=== PATIENT | female | born 1965 | race Caucasian/White ===

== ENCOUNTER 2016-12-20 12:34 | Emergency (ER) | payer OTHER ==
--- NOTE | 2016-12-20 14:12 | DIAGNOSTIC IMAGING REPORT ---
PROCEDURE: XR CHEST 2 VIEW INDICATION: COUGH TECHNIQUE: Two views. COMPARISON: None. FINDINGS: Low lung volumes. Normal heart size. There is crowded central vasculature, accentuated due to low lung volumes. Mild thickening of the interstitium diffusely. Mild hazy alveolar opacity in the right lower lung, right mid lung. The left lung appears fairly clear. Questionable trace right effusion. No pneumothorax. Intact osseous structures. IMPRESSION: 1. Low lung volumes. There is accentuation of the central bronchovascular markings. 2. Right mid and lower lung opacities may be atelectasis, infectious process, less likely edema. Correlate clinically.
--- NOTE | 2016-12-20 14:33 | ED ORDER SUMMARY ---
..... Patient: DWAINE MORAN OrderSheet [facility] VisitID: [id number] [address] [place] [address] 51y, F Registration Date/Time: 12/20/2016 ORDER SHEET Weight: 109.7 kg (stated) Allergies: Codeine GENERAL ORDERS: Chest 2V Urgent (13:18 12/20/2016 HBivens A.R.N.P.) (Ack 13:25 RKaruga) (14:07 RMarsden R.N.) CBC w Diff Urgent (13:18 12/20/2016 HBivens A.R.N.P.) (Ack 13:25 RKaruga) (13:38 RMarsden R.N.) CMP Urgent (13:18 12/20/2016 HBivens A.R.N.P.) (Ack 13:25 RKaruga) (13:38 RMarsden R.N.) BNP Urgent (13:18 12/20/2016 HBivens A.R.N.P.) (Ack 13:25 RKaruga) (13:38 RMarsden R.N.) EKG - ER Stat (13:18 12/20/2016 HBivens A.R.N.P.) (Ack 13:25 RKaruga) (13:45 RKaruga) MEDICATION ORDERS: Albuterol Neb w Atrovent 1 unit dose (NOW) (13:18 12/20/2016 HBivens A.R.N.P.) (13:42 Jamil) IV FLUIDS: IV Saline Lock (13:03 12/20/2016 RMarsden R.N. per protocol) (Cancelled: Duplicate Order14:00 RMarsden R.N.) Solu-MEDROL IV 125 mg (NOW) (13:17 12/20/2016 HBivens A.R.N.P.) (13:59 RMarsden R.N.) IV Saline Lock (13:18 12/20/2016 HBivens A.R.N.P.) (13:28 LSullivan R.N.) Ceftriaxone IV 1 gm/50mL (NOW) (14:24 12/20/2016 HBivens A.R.N.PAida) (Ack 14:27 RMarsden R.N.) (14:35 RMarskassie R.N.) ORDER SHEET NOTES: [Electronically signed by Dilcia Hayes R.N. (15:14 12/20/2016)] [Electronically signed by Gwen PeñaNAidaPAida (18:17 12/20/2016)] [Electronically locked/signed by Dilcia Hayes R.N. (15:14 12/20/2016)]
--- NOTE | 2016-12-20 14:33 | ED NURSING NOTES ---
Clinical Report - Nurses [facility] [address] [place] [address] 12/20/2016 12:36 Patient: DWAINE MORAN TRIAGE Triage time 12:50. Acuity: LEVEL 3. 13:01 12/20/16. Alert. No acute distress. SEPSIS SCREEN: Sepsis Screen. Negative (no infection suspected/documented). SALLY COMA SCORE: [place] Coma Scale: 15- eyes open spontaneously (4); best verbal response- oriented x 4 (5); best motor response- obeys commands (6). --13:01 Melissa Will R.N. 12:51 12/20/16. BP: 163/85. HR: 99. RR: 19. O2 saturation: 100%. Temp: 97.6 F. Pain level now: 02/23. --13:01 Melissa Will R.N. Chief Complaint: COUGH and (shortness of breath). --15:14 Dilcia Hayes R.N. Weight: 109.7 kg stated. Height/Length: 63 inches Per Patient. BMI: 42.9. --13:00 Melissa Will R.N. Medications Atorvastatin Calcium Oral 40 mg, daily. BuPROPion HCl Oral 150 mg, 2x a day. Clotrimazole-Betamethasone External, twice daily. Flexeril Oral 10 mg, 2x a day. FLUoxetine HCl Oral (Tablet 60 mg), daily. Imitrex Oral (Tablet 50 mg) 2 tablets, PRN. Lantus SoloStar Subcutaneous (Solution 100 unit/mL) 60units, twice daily (pt states she hasn't taken for about one month because she wants to loose weight.). LORazepam Oral 1 mg, 3x a day as needed. PriLOSEC Oral 20 mg, 3x a day. Qvar Inhalation (Aerosol Solution 80 mcg/act) 2 puffs, twice daily. Triamcinolone Acetonide External Small amount, daily. Vicodin Oral 10 mg, 4x a day. Vit D-Vit E-Safflower Oil External 1000 units, daily. Zetia Oral (Tablet 10 mg) 1 tablet, daily. --12:55 Melissa Will R.N. NovoLOG Subcutaneous. --12:56 Melissa Will R.N. Lyrica Oral. --12:56 Melissa Will R.N. Allergies Codeine. --12:52 Melissa Will R.N. History Arrived by private vehicle. Historian: patient and family. This started last night. She has had a nasal discharge, chest congestion, chills and difficulty breathing. ( upper back pain from coughing). Treatment DESTINATION COORDINATOR: (mucinex). PAST MEDICAL HX: Immunizations: up-to-date. Denies current . SOCIAL HX: Former smoker, end date 1993. No alcohol use or drug use. FALL RISK ASSESSMENT: Fall risk assessment completed. No fall risk identified. NUTRITIONAL RISK ASSESSMENT: The nutritional risk assessment revealed no deficiencies. FUNCTIONAL ASSESSMENT: Functional assessment: no impairments noted. LEARNING NEEDS ASSESSMENT: The learning needs assessment revealed no barriers. SKIN INTEGRITY ASSESSMENT: Skin integrity risk assessment completed. No skin integrity risk identified. --13:01 Melissa Will R.N. PROBLEMS: Myofascial Strain. Tetanus Status. Immunizations. Nephrolithiasis. Dyspnea. Anxiety Reaction. Depression. Fibromyalgia. Asthma. Diabetes Mellitus. Hypertension. LNMP - Last Normal Menstrual Period. --12:55 Melissa Will R.N. ADDITIONAL SURGERIES: Appendectomy. Cholecystectomy. Hysterectomy. Kidney stents. --12:55 Melissa Will R.N. Interventions ID band on patient. To treatment room. --13:01 Melissa Will R.N. PHYSICAL ASSESSMENT 13:02 12/20/16. GENERAL / NEURO / PSYCH: Alert. Oriented X 4. Appears in no acute distress. HEENT: Mucous membranes are pink. RESPIRATORY: Mild respiratory distress. The patient can speak in full sentences. CVS: Capillary refill less than 2 seconds. SKIN: Skin is warm and dry. Normal skin turgor. --13:02 Melissa Will R.N. NURSING PROGRESS NOTES 13:02 12/20/16. Patient gowned. Two patient identifiers checked. Call light placed in reach. Bed placed in lowest position. Brakes of bed on. Patient ready for evaluation- chart flagged and notification provided. --13:02 Melissa Will R.N. 13:28 12/20/2016 Site #1 started via IV in the left hand with an 20g angiocath, with aseptic technique and good blood return; one attempt. Blood drawn: rainbow set. Labeled in the presence of the patient and sent to the lab. Saline lock flushed with 10 mL saline. --13:28 Dilcia Hayes R.N. 13:42 12/20/2016 ALBUTEROL NEB W ATROVENT Neb TX 1 unit dose given. Given by the respiratory therapist. --13:42 Rico Price EKG time: (13:40). EKG was performed by a tech and shown to the LINER HELPER. --13:45 Claudia Krishnamurthy 13:49 12/20/2016 SOLU-MEDROL (MethylPREDNISolone Sodium Succ) IVP 125 mg given over 3 minute(s) via site #1. Allergies verified and confirmed 5 rights. IV patency established. IV site checked: no pain, redness, or swelling. IV flushed thoroughly pre- and post-medication administration. IVP given by RN. --13:59 Melissa Will R.N. 14:35 12/20/2016 Started 1 gm of Ceftriaxone IVPB in bag #1 50 mL; at 150 mL/hr over 20 minute(s) via site #1 via IV pump. Allergies verified and confirmed 5 rights. IV patency established. IV site checked: no pain, redness, or swelling. IV flushed thoroughly pre- and post-medication administration. --14:35 Melissa Will R.N. 15:00 12/20/2016 Ceftriaxone IVPB Discontinued: infused. Total amount infused: 50 mL. IV patency established. IV site checked: no pain, redness, or swelling. IV flushed thoroughly. --15:00 Dilcia Hayes R.N. DISPOSITION / DISCHARGE 15:04 12/20/2016 Site #1 removed upon discharge. Catheter intact. Bandage applied. --15:14 Dilcia Hayes R.N. Departure time: 1507. Condition at departure: improved. No learning barriers present. Discharge instructions provided and reviewed with the patient and family. Reviewed medication(s) information. Prescription(s) given to the patient. Reviewed referral to family practice for followup. Patient verbalized understanding. Written instructions provided. The patient was discharged home and accompanied by bowling alley mechanic. She left the Emergency Department ambulatory and via private vehicle. --15:14 Dilcia Hayes R.N. 15:07 12/20/16. BP: 140/71. HR: 98. RR: 19. O2 saturation: 96%. Temp: 98.3 F. Pain level now: 10/26. --15:14 Dilcia Hayes R.N. Locked/Released at 12/20/2016 15:14 by Dilcia Hayes R.N.
--- NOTE | 2016-12-20 14:33 | ED ORDER SUMMARY ---
..... Patient: DWAINE MORAN OrderSheet [facility] VisitID: [id number] [address] [place] [address] 51y, F Registration Date/Time: 12/20/2016 ORDER SHEET Weight: 109.7 kg (stated) Allergies: Codeine GENERAL ORDERS: Chest 2V Urgent (13:18 12/20/2016 HBivens A.R.N.P.) (Ack 13:25 RKaruga) (14:07 RMarsden R.N.) CBC w Diff Urgent (13:18 12/20/2016 HBivens A.R.N.P.) (Ack 13:25 RKaruga) (13:38 RMarsden R.N.) CMP Urgent (13:18 12/20/2016 HBivens A.R.N.P.) (Ack 13:25 RKaruga) (13:38 RMarsden R.N.) BNP Urgent (13:18 12/20/2016 HBivens A.R.N.P.) (Ack 13:25 RKaruga) (13:38 RMarsden R.N.) EKG - ER Stat (13:18 12/20/2016 HBivens A.R.N.P.) (Ack 13:25 RKaruga) (13:45 RKaruga) MEDICATION ORDERS: Albuterol Neb w Atrovent 1 unit dose (NOW) (13:18 12/20/2016 HBivens A.R.N.P.) (13:42 Jamil) IV FLUIDS: IV Saline Lock (13:03 12/20/2016 RMarsden R.N. per protocol) (Cancelled: Duplicate Order14:00 RMarsden R.N.) Solu-MEDROL IV 125 mg (NOW) (13:17 12/20/2016 HBivens A.R.N.P.) (13:59 RMarsden R.N.) IV Saline Lock (13:18 12/20/2016 HBivens A.R.N.P.) (13:28 LSullivan R.N.) Ceftriaxone IV 1 gm/50mL (NOW) (14:24 12/20/2016 HBivens A.R.N.PAida) (Ack 14:27 RMarsden R.N.) (14:35 RMarskassie R.N.) ORDER SHEET NOTES: [Electronically signed by Dilcia Hayes R.N. (15:14 12/20/2016)] [Electronically signed by Gwen PeñaNAidaPAida (18:17 12/20/2016)] [Electronically locked/signed by Dilcia Hayes R.N. (15:14 12/20/2016)]
--- NOTE | 2016-12-20 14:33 | ED CLINICAL REPORT ---
Clinical Report - Physicians/Mid Levels [facility] [address] [place] [address] 12/20/2016 12:36 Patient: DWAINE MORAN Time Seen: 1310; initial patient contact, initial documentation, patient care assumed. Arrived- By private vehicle. Historian- patient and family. HISTORY OF PRESENT ILLNESS Chief Complaint: DYSPNEA, WHEEZING and HISTORY OF ASTHMA. This started last night and is still present. The dyspnea is described as moderate. The patient has had a cough and orthopnea. No sputum production or chest pain or discomfort. See nurses notes for current asthma threapy. Asthma triggers: air pollution, allergies and weather. Takes asthma medications (inhaled albuterol) Similar symptoms previously: Chronically, worse. Recent medical care: Not recently seen/assessed. REVIEW OF SYSTEMS No sore throat, sinus drainage or fever. She has had a nasal discharge. Denies current . All systems otherwise negative, except as recorded above. PAST HISTORY See nurses notes. PROBLEMS: Myofascial Strain. Tetanus Status. Immunizations. Nephrolithiasis. Dyspnea. Anxiety Reaction. Depression. Fibromyalgia. Asthma. Diabetes Mellitus. Hypertension. LNMP - Last Normal Menstrual Period. --12:55 Melissa Will R.N. ADDITIONAL SURGERIES: Appendectomy. Cholecystectomy. Hysterectomy. Kidney stents. --12:55 Melissa Will R.N. Anemia. SOCIAL HISTORY Former smoker. No alcohol use or drug use. No recent travel. Is a local resident. FAMILY HISTORY Negative. ADDITIONAL NOTES The nursing notes have been reviewed with agreement regarding the chief complaint, HPI, ROS, PMH and patient medications and allergies. PHYSICAL EXAM Vital Signs: 12/20/2016 12:51 BP: 163/85. HR: 99. RR: 19. O2 saturation: 100%. Temp: 97.6 F. Pain level now: 6/10. Have been reviewed as normal and appear to be correct. Appearance: Alert. No acute distress. Eyes: Pupils equal, round and reactive to light. Eyes normal inspection. ENT: Ears normal. Nose normal. Pharynx normal. Uvula midline. (pt sounds somewhat hoarse). Neck: Normal inspection. Neck supple. CVS: Normal heart rate and rhythm. Heart sounds normal. Pulses normal. Respiratory: No respiratory distress. Breath sounds abnormal. Mildly decreased air movement in the bases bilaterally. Abdomen: Mildly obese. Back: Normal inspection. Skin: Skin warm and dry. Normal skin color. No rash. Normal skin turgor. Extremities: Extremities exhibit normal ROM. No lower extremity edema. Neuro: Oriented X 3. No motor deficit. No sensory deficit. LABS, X-RAYS, AND EKG EKG: EKG time: (1340). No acute process. No acute ischemia. Normal EKG. Rate: 91. Normal EKG. The study has been interpreted contemporaneously by me (and dr maciel). The EKG appears to be a good tracing. Interpretation time: 1342. Chest X-ray: Normal Chest X-Ray. (IMPRESSION: 1. Low lung volumes. There is accentuation of the central bronchovascular markings. 2. Right mid and lower lung opacities may be atelectasis, infectious process, less likely edema. Correlate clinically. Electronically Final signed by:Vero Hancock MD 12/20/2016 2:12:40 PM). The X-rays were interpreted by the radiologist and contemporaneously by me. Laboratory Tests: CBC w Diff: (SULEMAN: 12/20/2016 13:22) ( MsgRcvd 12/20/2016 13:47) Final results Test Result Flag Units (Reference) WHITE BLOOD COUNT 6.4 K/uL (4.5-11.5) RED BLOOD COUNT 3.27 L M/uL (4.00-5.20) HEMOGLOBIN 9.8 L gm/dL (12.0-16.0) HEMATOCRIT 30.0 L % (36.0-46.0) MEAN CELL VOLUME 92 fL (80-100) MEAN CORPUSCULAR HGB 30 pg (26-34) MEAN CORPUSCULAR HGB CONC 33 g/dL (31-37) RED CELL DISTRIBUTION WIDTH 13.3 % (11.6-14.8) PLATELET COUNT 279 K/uL (150-400) NEUTROPHIL % 63.0 % (50-75) LYMPH % 22.9 L % (25-40) MONO % 9.9 % (3-14) EOSINOPHIL % 2.6 % (0-4) BASOPHIL % 1.6 % (0-2) BNP: (SULEMAN: 12/20/2016 13:22) ( MsgRcvd 12/20/2016 13:51) Final results Test Result Flag Units (Reference) B-TYPE NATRIURETIC PEPTIDE 77.3 pg/ml (5-100) CMP: (SULEMAN: 12/20/2016 13:22) ( MsgRcvd 12/20/2016 13:51) Final results Test Result Flag Units (Reference) GLUCOSE 278 H mg/dL (70-110) BUN 35 H mg/dL (7-18) CREATININE 1.1 mg/dL (0.6-1.3) Estimated GFR 55.22 mL/min Estimated GFR- >60 mL/min Note: Persistent reduction over 3 months in eGFR<60 mL/min/1.73 m2 defines CKD. Patients with eGFR values>=60 mL/min/1.73 m2 may also have CKD if evidence ofpersistent proteinuria. Additional information may be foundat www.[email or web address].org. SODIUM 140 mmol/L (136-145) POTASSIUM 4.4 mmol/L (3.5-5.1) CHLORIDE 106 mmol/L (98-107) CARBON DIOXIDE 27 mmol/L (21-32) CALCIUM 9.1 mg/dL (8.5-10.1) TOTAL PROTEIN 6.1 L g/dL (6.4-8.2) ALBUMIN 2.1 L g/dL (3.3-5.0) BILIRUBIN, TOTAL 0.2 mg/dL (0.0-1.0) ALKALINE PHOSPHATASE 73 U/L (46-116) AST (SGOT) 33 U/L (15-37) ALT (SGPT) 60 U/L (12-78) . PROGRESS AND PROCEDURES Course of Care: 13:51 12/20/16. pt has ligia for narcs, getting lyrica and #120 hydrocodone 10mg every month, see report for full details. 18:17. 14:20. Symptoms better. She is having difficulty breathing (began in ED - improving). Alert. Oriented X3. No acute distress. Breath sounds normal. No respiratory distress. Normal heart rate and rhythm. Heart sounds normal. Skin warm and dry. Oriented X 3. Patient and family counseled in person regarding the patient's stable condition, test results and diagnosis. 14:20. Differential Diagnosis: Other possible considerations: asthma, copd, emphysema, bronchitis, pneumonia, sinusitis, allergies, chf. Above considerations are based on history, physical exam, reassessment, laboratory data, X-Ray data, EKG and other information. Differential diagnosis was discussed with patient and patient's family. Disposition: Discharged home in good and improved condition (14:33). Condition: good and stable. CLINICAL IMPRESSION Bronchopneumonia. Vital signs recorded and reviewed; empiric antibiotics given in the ED and prescribed. No hypoxemia, respiratory failure or sepsis. INSTRUCTIONS Alternate Tylenol (Acetaminophen) and Motrin (Ibuprofen) for fever, temperature greater than 101 degrees orally. Take according to label instructions. Avoid tobacco smoke. Warnings: GENERAL WARNINGS: Return or contact your physician immediately if your condition worsens or changes unexpectedly, if not improving as expected, or if other problems arise. Specifically return if problem worsens. Prescription Medications: Albuterol HFA oral inhaler: inhale 1 to 2 puffs every four to six hours as needed for difficulty breathing. Dispense one (1) unit. No refills. Prednisone 20 mg: take 3 orally every day for 5 days. Dispense fifteen (15). No refills. Zithromax 250 mg tablets: take 2 orally today, followed by 1 daily for the next 4 days. No refills. Substitution is permissible. Follow-up: Follow up with your doctor in about two days even if well. Call for an appointment. Summary of care provided to patient. Understanding of the discharge instructions verbalized by patient. (Electronically signed by Gwen Peña A.R.N.P. 12/20/2016 18:17)
--- NOTE | 2016-12-20 14:33 | ED NURSING NOTES ---
Clinical Report - Nurses [facility] [address] [place] [address] 12/20/2016 12:36 Patient: DWAINE MORAN TRIAGE Triage time 12:50. Acuity: LEVEL 3. 13:01 12/20/16. Alert. No acute distress. SEPSIS SCREEN: Sepsis Screen. Negative (no infection suspected/documented). SALLY COMA SCORE: [place] Coma Scale: 15- eyes open spontaneously (4); best verbal response- oriented x 4 (5); best motor response- obeys commands (6). --13:01 Melissa Will R.N. 12:51 12/20/16. BP: 163/85. HR: 99. RR: 19. O2 saturation: 100%. Temp: 97.6 F. Pain level now: 02/23. --13:01 Melissa Will R.N. Chief Complaint: COUGH and (shortness of breath). --15:14 Dilcia Hayes R.N. Weight: 109.7 kg stated. Height/Length: 63 inches Per Patient. BMI: 42.9. --13:00 Melissa Will R.N. Medications Atorvastatin Calcium Oral 40 mg, daily. BuPROPion HCl Oral 150 mg, 2x a day. Clotrimazole-Betamethasone External, twice daily. Flexeril Oral 10 mg, 2x a day. FLUoxetine HCl Oral (Tablet 60 mg), daily. Imitrex Oral (Tablet 50 mg) 2 tablets, PRN. Lantus SoloStar Subcutaneous (Solution 100 unit/mL) 60units, twice daily (pt states she hasn't taken for about one month because she wants to loose weight.). LORazepam Oral 1 mg, 3x a day as needed. PriLOSEC Oral 20 mg, 3x a day. Qvar Inhalation (Aerosol Solution 80 mcg/act) 2 puffs, twice daily. Triamcinolone Acetonide External Small amount, daily. Vicodin Oral 10 mg, 4x a day. Vit D-Vit E-Safflower Oil External 1000 units, daily. Zetia Oral (Tablet 10 mg) 1 tablet, daily. --12:55 Melissa Will R.N. NovoLOG Subcutaneous. --12:56 Melissa Will R.N. Lyrica Oral. --12:56 Melissa Will R.N. Allergies Codeine. --12:52 Melissa Will R.N. History Arrived by private vehicle. Historian: patient and family. This started last night. She has had a nasal discharge, chest congestion, chills and difficulty breathing. ( upper back pain from coughing). Treatment OPERATIONS ARCHITECT: (mucinex). PAST MEDICAL HX: Immunizations: up-to-date. Denies current . SOCIAL HX: Former smoker, end date 1993. No alcohol use or drug use. FALL RISK ASSESSMENT: Fall risk assessment completed. No fall risk identified. NUTRITIONAL RISK ASSESSMENT: The nutritional risk assessment revealed no deficiencies. FUNCTIONAL ASSESSMENT: Functional assessment: no impairments noted. LEARNING NEEDS ASSESSMENT: The learning needs assessment revealed no barriers. SKIN INTEGRITY ASSESSMENT: Skin integrity risk assessment completed. No skin integrity risk identified. --13:01 Melissa Will R.N. PROBLEMS: Myofascial Strain. Tetanus Status. Immunizations. Nephrolithiasis. Dyspnea. Anxiety Reaction. Depression. Fibromyalgia. Asthma. Diabetes Mellitus. Hypertension. LNMP - Last Normal Menstrual Period. --12:55 Melissa Will R.N. ADDITIONAL SURGERIES: Appendectomy. Cholecystectomy. Hysterectomy. Kidney stents. --12:55 Melissa Will R.N. Interventions ID band on patient. To treatment room. --13:01 Melissa Will R.N. PHYSICAL ASSESSMENT 13:02 12/20/16. GENERAL / NEURO / PSYCH: Alert. Oriented X 4. Appears in no acute distress. HEENT: Mucous membranes are pink. RESPIRATORY: Mild respiratory distress. The patient can speak in full sentences. CVS: Capillary refill less than 2 seconds. SKIN: Skin is warm and dry. Normal skin turgor. --13:02 Melissa Will R.N. NURSING PROGRESS NOTES 13:02 12/20/16. Patient gowned. Two patient identifiers checked. Call light placed in reach. Bed placed in lowest position. Brakes of bed on. Patient ready for evaluation- chart flagged and notification provided. --13:02 Melissa Will R.N. 13:28 12/20/2016 Site #1 started via IV in the left hand with an 20g angiocath, with aseptic technique and good blood return; one attempt. Blood drawn: rainbow set. Labeled in the presence of the patient and sent to the lab. Saline lock flushed with 10 mL saline. --13:28 Dilcia Hayes R.N. 13:42 12/20/2016 ALBUTEROL NEB W ATROVENT Neb TX 1 unit dose given. Given by the respiratory therapist. --13:42 Rico Price EKG time: (13:40). EKG was performed by a tech and shown to the METAL TEMPERER. --13:45 Claudia Krishnamurthy 13:49 12/20/2016 SOLU-MEDROL (MethylPREDNISolone Sodium Succ) IVP 125 mg given over 3 minute(s) via site #1. Allergies verified and confirmed 5 rights. IV patency established. IV site checked: no pain, redness, or swelling. IV flushed thoroughly pre- and post-medication administration. IVP given by RN. --13:59 Melissa Will R.N. 14:35 12/20/2016 Started 1 gm of Ceftriaxone IVPB in bag #1 50 mL; at 150 mL/hr over 20 minute(s) via site #1 via IV pump. Allergies verified and confirmed 5 rights. IV patency established. IV site checked: no pain, redness, or swelling. IV flushed thoroughly pre- and post-medication administration. --14:35 Melissa Will R.N. 15:00 12/20/2016 Ceftriaxone IVPB Discontinued: infused. Total amount infused: 50 mL. IV patency established. IV site checked: no pain, redness, or swelling. IV flushed thoroughly. --15:00 Dilcia Hayes R.N. DISPOSITION / DISCHARGE 15:04 12/20/2016 Site #1 removed upon discharge. Catheter intact. Bandage applied. --15:14 Dilcia Hayes R.N. Departure time: 1507. Condition at departure: improved. No learning barriers present. Discharge instructions provided and reviewed with the patient and family. Reviewed medication(s) information. Prescription(s) given to the patient. Reviewed referral to family practice for followup. Patient verbalized understanding. Written instructions provided. The patient was discharged home and accompanied by system consultant. She left the Emergency Department ambulatory and via private vehicle. --15:14 Dilcia Hayes R.N. 15:07 12/20/16. BP: 140/71. HR: 98. RR: 19. O2 saturation: 96%. Temp: 98.3 F. Pain level now: 10/26. --15:14 Dilcia Hayes R.N. Locked/Released at 12/20/2016 15:14 by Dilcia Hayes R.N.
--- NOTE | 2016-12-20 18:17 | ED MAR SUMMARY ---
..... Medication Administration Record [facility] [address] [place] [address] Patient: DWAINE MORAN Visit ID: [id number] 51y, F Weight: 109.7 kg Height/Length: 63 in BMI: 42.9 ALLERGIES: Codeine Given 13:42 12/20/2016 Rico Price, Medication Administered: ALBUTEROL NEB W ATROVENT, Dose: 1 unit dose Neb TX. Medication Ordered: Albuterol Neb w Atrovent 1 unit dose (NOW). Given 13:49 12/20/2016 Melissa Will RAidaN. Medication Administered: SOLU-MEDROL [IVP] (METHYLPREDNISOLONE SODIUM SUCC), Dose: 125 mg IVP over 3 minute(s), Site: #1 left hand. Medication Ordered: Solu-MEDROL IV 125 mg (NOW). Start 14:35 12/20/2016 Melissa Will, RAidaN., Stop 15:00 12/20/2016 Dilcia Hayes RAidaN. Medication Administered: CEFTRIAXONE [IVPB], Dose: 1 gm IVPB over 20 minute(s), Rate: 150 mL/hr, Dispensed: 50 mL bag, Site: #1 left hand. Medication Ordered: Ceftriaxone IV 1 gm/50mL (NOW).
--- NOTE | 2016-12-20 18:17 | ED DISCHARGE INSTRUCTIONS ---
Patient: DWAINE MORAN General Instructions [facility] VisitID: [id number] [place] [address] [id number], F Registration Date/Time: 12/20/2016 Bronchopneumonia. Vital signs recorded and reviewed; empiric antibiotics given in the ED and prescribed. No hypoxemia, respiratory failure or sepsis. INSTRUCTIONS Alternate Tylenol (Acetaminophen) and Motrin (Ibuprofen) for fever, temperature greater than 101 degrees orally. Take according to label instructions. Avoid tobacco smoke. Warnings: GENERAL WARNINGS: Return or contact your physician immediately if your condition worsens or changes unexpectedly, if not improving as expected, or if other problems arise. Specifically return if problem worsens. Prescription Medications: Albuterol HFA oral inhaler: inhale 1 to 2 puffs every four to six hours as needed for difficulty breathing. Dispense one (1) unit. No refills. Prednisone 20 mg: take 3 orally every day for 5 days. Dispense fifteen (15). No refills. Zithromax 250 mg tablets: take 2 orally today, followed by 1 daily for the next 4 days. No refills. Substitution is permissible. Follow-up: Follow up with your doctor in about two days even if well. Call for an appointment. Summary of care provided to patient. Understanding of the discharge instructions verbalized by patient. ADDITIONAL INFORMATION Pneumonia (Adult) Pneumonia is an infection deep within the lung, in the small air sacs (alveoli). It may be due to a virus or bacteria and is usually treated with an antibiotic. Severe cases require treatment in the hospital. Milder cases can be treated at home. Symptoms usually start to improve during the first2 days of treatment. Home Care: Rest at home for the first 23 days or until you feel stronger. When resuming activity, dont let yourself become overly tired. Avoid exposure to cigarette smoke (yours or others). You may use acetaminophen (Tylenol) or ibuprofen (Motrin, Advil) to control fever or pain, unless another medicine was prescribed. [NOTE: If you have chronic liver or kidney disease or ever had a stomach ulcer or GI bleeding, talk with your doctor before using these medicines.] (Aspirin should never be used in anyone under 18 years of age who is ill with a fever. It may cause severe liver damage.) Your appetite may be poor so a light diet is fine. Keep well hydrated by drinking 68 glasses of fluids per day (water, sport drinks such as Gatorade, sodas without caffeine, juices, tea, soup, etc.). This will help loosen secretions in the lung, making it easier for you to cough up the phlegm (sputum). If you also have heart or kidney disease, check with your doctor before you drink extra amounts of fluids. Finish all antibiotic medicine prescribed, even if you are feeling better after a few days. Follow Up with your doctor in the next 23 days (or as advised) to be sure you are responding properly to the medicine. [NOTE: If you are age 65 or older, or if you have chronic lung disease (asthma, emphysema or COPD), we recommendthe pneumococcal vaccination and a yearlyinfluenzavaccination(flu-shot) every . Ask your doctor about this.] Get Prompt Medical Attention if any of the following occur: Not getting better within the first 48 hours of treatment Increasing shortness of breath or rapid breathing (over 25 breaths/minute) Coughing up blood or increasing chest pain with breathing Fever of 100.4F (38C) oral or higher, not better with fever medication Increasing weakness, dizziness or fainting Increasing thirst or dry mouth Sinus pain, headache or a stiff neck Chest pain not caused by coughing Fever Control (Adult) A fever is a natural reaction of the body to an illness. In most cases, the temperature itself is not harmful. It actually helps the body fight infections. A fever does not need to be treated unless you feel very uncomfortable. Home Care If you feel warm, check your temperature. If you feel very uncomfortable and your temperature is at or higher than 100.4F (38C) oral, you may take acetaminophen (Tylenol) every 4 to 6 hours. If you cant take or keep down oral medicine, ask your pharmacist for Tylenol suppositories, which you can get without a prescription. If the fever does not respond to acetaminophen within 1 hour, take ibuprofen (Advil or Motrin). If this works, keep taking the ibuprofen every 6 to 8 hours. Note: If you have chronic liver or kidney disease or ever had a stomach ulcer or GI bleeding, talk with your doctor before using these medications. If either medication alone does not keep the fever down, you may alternate the two medicines every 3 to 4 hours, only if your healthcare provider has instructed you to do so. For example, take Motrin then wait 3 hours, take Tylenol then wait 3 hours, take Motrin, and so on. Follow your healthcare providers instructions exactly. Clothing: Keep clothing light because excess body heat is lost through the skin. The fever will go up if you wear extra layers or wrap in blankets. Fluids: Fever causes the body to lose water through evaporation. Drink plenty of fluids such as water, juice, clear sodas, giulia mason, or lemonade. Do not use aspirin in anyone under 18 years of age who is ill with a fever. It can cause severe liver damage. Follow Up with your doctor or as advised by our staff if you do not get better after 48 hours. Get Prompt Medical Attention if any of the following occur: Fever does not get better after taking fever medication Fast or difficult breathing Earache, sinus pain, stiff or painful neck, headache, repeated diarrhea or vomiting You feel unusually irritable, drowsy, or confused A rash appears You feel weak or dizzy, or that you might faint Albuterol Sulfate Pressurized inhalation, suspension What is this medicine? ALBUTEROL (al BYOO ter ole) is a bronchodilator. It helps open up the airways in your lungs to make it easier to breathe. This medicine is used to treat and to prevent bronchospasm. How should I use this medicine? This medicine is for inhalation through the mouth. Follow the directions on your prescription label. Take your medicine at regular intervals. Do not use more often than directed. Make sure that you are using your inhaler correctly. Ask you doctor or health care provider if you have any questions. Talk to your hadoop engineer regarding the use of this medicine in children. Special care may be needed. What side effects may I notice from receiving this medicine? Side effects that you should report to your doctor or health clinical manager home care as soon as possible: allergic reactions like skin rash, itching or hives, swelling of the face, lips, or tongue breathing problems chest pain feeling faint or lightheaded, falls high blood pressure irregular heartbeat fever muscle cramps or weakness pain, tingling, numbness in the hands or feet vomiting Side effects that usually do not require medical attention (report to your doctor or health clinical manager home care if they continue or are bothersome): cough difficulty sleeping headache nervousness or trembling stomach upset stuffy or runny nose throat irritation unusual taste What may interact with this medicine? anti-infectives like chloroquine and pentamidine caffeine cisapride diuretics medicines for colds medicines for depression or for emotional or psychotic conditions medicines for weight loss including some herbal products methadone some antibiotics like clarithromycin, erythromycin, levofloxacin, and linezolid some heart medicines steroid hormones like dexamethasone, cortisone, hydrocortisone theophylline thyroid hormones What if I miss a dose? If you miss a dose, use it as soon as you can. If it is almost time for your next dose, use only that dose. Do not use double or extra doses. Where should I keep my medicine? Keep out of the reach of children. Store at room temperature between 15 and 30 degrees C (59 and 86 degrees F). The contents are under pressure and may burst when exposed to heat or flame. Do not freeze. This medicine does not work as well if it is too cold. Throw away any unused medicine after the expiration date. Inhalers need to be thrown away after the labeled number of puffs have been used or by the expiration date; whichever comes first. Ventolin HFA should be thrown away 12 months after removing from foil pouch. Check the instructions that come with your medicine. What should I tell my health care provider before I take this medicine? They need to know if you have any of the following conditions: diabetes heart disease or irregular heartbeat high blood pressure pheochromocytoma seizures thyroid disease an unusual or allergic reaction to albuterol, levalbuterol, sulfites, other medicines, foods, dyes, or preservatives or trying to get breast-feeding What should I watch for while using this medicine? Tell your doctor or health clinical manager home care if your symptoms do not improve. Do not use extra albuterol. If your asthma or bronchitis gets worse while you are using this medicine, call your doctor right away. If your mouth gets dry try chewing sugarless gum or sucking hard candy. Drink water as directed. Prednisone Oral tablet What is this medicine? PREDNISONE (PRED ni sone) is a corticosteroid. It is commonly used to treat inflammation of the skin, joints, lungs, and other organs. Common conditions treated include asthma, allergies, and arthritis. It is also used for other conditions, such as blood disorders and diseases of the adrenal glands. How should I use this medicine? Take this medicine by mouth with a glass of water. Follow the directions on the prescription label. Take this medicine with food. If you are taking this medicine once a day, take it in the morning. Do not take more medicine than you are told to take. Do not suddenly stop taking your medicine because you may develop a severe reaction. Your doctor will tell you how much medicine to take. If your doctor wants you to stop the medicine, the dose may be slowly lowered over time to avoid any side effects. Talk to your hadoop engineer regarding the use of this medicine in children. Special care may be needed. What side effects may I notice from receiving this medicine? Side effects that you should report to your doctor or health clinical manager home care as soon as possible: allergic reactions like skin rash, itching or hives, swelling of the face, lips, or tongue changes in emotions or moods changes in vision depressed mood eye pain fever or chills, cough, sore throat, pain or difficulty passing urine increased thirst swelling of ankles, feet Side effects that usually do not require medical attention (report to your doctor or health clinical manager home care if they continue or are bothersome): confusion, excitement, restlessness headache nausea, vomiting skin problems, acne, thin and shiny skin trouble sleeping weight gain What may interact with this medicine? Do not take this medicine with any of the following medications: metyrapone mifepristone This medicine may also interact with the following medications: aminoglutethimide amphotericin B aspirin and aspirin-like medicines barbiturates certain medicines for diabetes, like glipizide or glyburide cholestyramine cholinesterase inhibitors cyclosporine digoxin diuretics ephedrine female hormones, like estrogens and control pills isoniazid ketoconazole NSAIDS, medicines for pain and inflammation, like ibuprofen or naproxen phenytoin rifampin toxoids vaccines warfarin What if I miss a dose? If you miss a dose, take it as soon as you can. If it is almost time for your next dose, talk to your doctor or health clinical manager home care. You may need to miss a dose or take an extra dose. Do not take double or extra doses without advice. Where should I keep my medicine? Keep out of the reach of children. Store at room temperature between 15 and 30 degrees C (59 and 86 degrees F). Protect from light. Keep container tightly closed. Throw away any unused medicine after the expiration date. What should I tell my health care provider before I take this medicine? They need to know if you have any of these conditions: Queenie's syndrome diabetes glaucoma heart disease high blood pressure infection (especially a virus infection such as chickenpox, cold sores, or herpes) kidney disease liver disease mental illness myasthenia gravis osteoporosis seizures stomach or intestine problems thyroid disease an unusual or allergic reaction to lactose, prednisone, other medicines, foods, dyes, or preservatives or trying to get breast-feeding What should I watch for while using this medicine? Visit your doctor or health clinical manager home care for regular checks on your progress. If you are taking this medicine over a prolonged period, carry an identification card with your name and address, the type and dose of your medicine, and your doctor's name and address. This medicine may increase your risk of getting an infection. Tell your doctor or health clinical manager home care if you are around anyone with measles or chickenpox, or if you develop sores or blisters that do not heal properly. If you are going to have surgery, tell your doctor or health clinical manager home care that you have taken this medicine within the last twelve months. Ask your doctor or health clinical manager home care about your diet. You may need to lower the amount of salt you eat. This medicine may affect blood sugar levels. If you have diabetes, check with your doctor or health clinical manager home care before you change your diet or the dose of your diabetic medicine. Azithromycin Oral tablet What is this medicine? AZITHROMYCIN (az ith nilton MYE sin) is a macrolide antibiotic. It is used to treat or prevent certain kinds of bacterial infections. It will not work for colds, flu, or other viral infections. How should I use this medicine? Take this medicine by mouth with a full glass of water. Follow the directions on the prescription label. The tablets can be taken with food or on an empty stomach. If the medicine upsets your stomach, take it with food. Take your medicine at regular intervals. Do not take your medicine more often than directed. Take all of your medicine as directed even if you think your are better. Do not skip doses or stop your medicine early. Talk to your hadoop engineer regarding the use of this medicine in children. Special care may be needed. What side effects may I notice from receiving this medicine? Side effects that you should report to your doctor or health clinical manager home care as soon as possible: allergic reactions like skin rash, itching or hives, swelling of the face, lips, or tongue confusion, nightmares or hallucinations dark urine difficulty breathing hearing loss irregular heartbeat or chest pain pain or difficulty passing urine redness, blistering, peeling or loosening of the skin, including inside the mouth white patches or sores in the mouth yellowing of the eyes or skin Side effects that usually do not require medical attention (report to your doctor or health clinical manager home care if they continue or are bothersome): diarrhea dizziness, drowsiness headache stomach upset or vomiting tooth discoloration vaginal irritation What may interact with this medicine? Do not take this medicine with any of the following medications: lincomycin This medicine may also interact with the following medications: amiodarone antacids cyclosporine digoxin magnesium nelfinavir phenytoin warfarin What if I miss a dose? If you miss a dose, take it as soon as you can. If it is almost time for your next dose, take only that dose. Do not take double or extra doses. Where should I keep my medicine? Keep out of the reach of children. Store at room temperature between 15 and 30 degrees C (59 and 86 degrees F). Throw away any unused medicine after the expiration date. What should I tell my health care provider before I take this medicine? They need to know if you have any of these conditions: kidney disease liver disease irregular heartbeat or heart disease an unusual or allergic reaction to azithromycin, erythromycin, other macrolide antibiotics, foods, dyes, or preservatives or trying to get breast-feeding What should I watch for while using this medicine? Tell your doctor or health clinical manager home care if your symptoms do not improve. Do not treat diarrhea with over the counter products. Contact your doctor if you have diarrhea that lasts more than 2 days or if it is severe and watery. This medicine can make you more sensitive to the sun. Keep out of the sun. If you cannot avoid being in the sun, wear protective clothing and use sunscreen. Do not use sun lamps or tanning beds/booths. You have been given the following additional information: Pneumonia (Adult) Fever Control (Adult) Albuterol Sulfate Pressurized inhalation, suspension Prednisone Oral tablet Azithromycin Oral tablet (Electronically signed by Gwen Peña, A.R.N.P. 12/20/2016 18:17)
--- NOTE | 2016-12-20 18:17 | ED DISCHARGE INSTRUCTIONS ---
Patient: DWAINE MORAN General Instructions [facility] VisitID: [id number] [place] [address] 51y, F Registration Date/Time: 12/20/2016 Bronchopneumonia. Vital signs recorded and reviewed; empiric antibiotics given in the ED and prescribed. No hypoxemia, respiratory failure or sepsis. INSTRUCTIONS Alternate Tylenol (Acetaminophen) and Motrin (Ibuprofen) for fever, temperature greater than 101 degrees orally. Take according to label instructions. Avoid tobacco smoke. Warnings: GENERAL WARNINGS: Return or contact your physician immediately if your condition worsens or changes unexpectedly, if not improving as expected, or if other problems arise. Specifically return if problem worsens. Prescription Medications: Albuterol HFA oral inhaler: inhale 1 to 2 puffs every four to six hours as needed for difficulty breathing. Dispense one (1) unit. No refills. Prednisone 20 mg: take 3 orally every day for 5 days. Dispense fifteen (15). No refills. Zithromax 250 mg tablets: take 2 orally today, followed by 1 daily for the next 4 days. No refills. Substitution is permissible. Follow-up: Follow up with your doctor in about two days even if well. Call for an appointment. Summary of care provided to patient. Understanding of the discharge instructions verbalized by patient. ADDITIONAL INFORMATION Pneumonia (Adult) Pneumonia is an infection deep within the lung, in the small air sacs (alveoli). It may be due to a virus or bacteria and is usually treated with an antibiotic. Severe cases require treatment in the hospital. Milder cases can be treated at home. Symptoms usually start to improve during the first2 days of treatment. Home Care: Rest at home for the first 23 days or until you feel stronger. When resuming activity, dont let yourself become overly tired. Avoid exposure to cigarette smoke (yours or others). You may use acetaminophen (Tylenol) or ibuprofen (Motrin, Advil) to control fever or pain, unless another medicine was prescribed. [NOTE: If you have chronic liver or kidney disease or ever had a stomach ulcer or GI bleeding, talk with your doctor before using these medicines.] (Aspirin should never be used in anyone under 18 years of age who is ill with a fever. It may cause severe liver damage.) Your appetite may be poor so a light diet is fine. Keep well hydrated by drinking 68 glasses of fluids per day (water, sport drinks such as Gatorade, sodas without caffeine, juices, tea, soup, etc.). This will help loosen secretions in the lung, making it easier for you to cough up the phlegm (sputum). If you also have heart or kidney disease, check with your doctor before you drink extra amounts of fluids. Finish all antibiotic medicine prescribed, even if you are feeling better after a few days. Follow Up with your doctor in the next 23 days (or as advised) to be sure you are responding properly to the medicine. [NOTE: If you are age 65 or older, or if you have chronic lung disease (asthma, emphysema or COPD), we recommendthe pneumococcal vaccination and a yearlyinfluenzavaccination(flu-shot) every . Ask your doctor about this.] Get Prompt Medical Attention if any of the following occur: Not getting better within the first 48 hours of treatment Increasing shortness of breath or rapid breathing (over 25 breaths/minute) Coughing up blood or increasing chest pain with breathing Fever of 100.4F (38C) oral or higher, not better with fever medication Increasing weakness, dizziness or fainting Increasing thirst or dry mouth Sinus pain, headache or a stiff neck Chest pain not caused by coughing Fever Control (Adult) A fever is a natural reaction of the body to an illness. In most cases, the temperature itself is not harmful. It actually helps the body fight infections. A fever does not need to be treated unless you feel very uncomfortable. Home Care If you feel warm, check your temperature. If you feel very uncomfortable and your temperature is at or higher than 100.4F (38C) oral, you may take acetaminophen (Tylenol) every 4 to 6 hours. If you cant take or keep down oral medicine, ask your pharmacist for Tylenol suppositories, which you can get without a prescription. If the fever does not respond to acetaminophen within 1 hour, take ibuprofen (Advil or Motrin). If this works, keep taking the ibuprofen every 6 to 8 hours. Note: If you have chronic liver or kidney disease or ever had a stomach ulcer or GI bleeding, talk with your doctor before using these medications. If either medication alone does not keep the fever down, you may alternate the two medicines every 3 to 4 hours, only if your healthcare provider has instructed you to do so. For example, take Motrin then wait 3 hours, take Tylenol then wait 3 hours, take Motrin, and so on. Follow your healthcare providers instructions exactly. Clothing: Keep clothing light because excess body heat is lost through the skin. The fever will go up if you wear extra layers or wrap in blankets. Fluids: Fever causes the body to lose water through evaporation. Drink plenty of fluids such as water, juice, clear sodas, giulia mason, or lemonade. Do not use aspirin in anyone under 18 years of age who is ill with a fever. It can cause severe liver damage. Follow Up with your doctor or as advised by our staff if you do not get better after 48 hours. Get Prompt Medical Attention if any of the following occur: Fever does not get better after taking fever medication Fast or difficult breathing Earache, sinus pain, stiff or painful neck, headache, repeated diarrhea or vomiting You feel unusually irritable, drowsy, or confused A rash appears You feel weak or dizzy, or that you might faint Albuterol Sulfate Pressurized inhalation, suspension What is this medicine? ALBUTEROL (al BYOO ter ole) is a bronchodilator. It helps open up the airways in your lungs to make it easier to breathe. This medicine is used to treat and to prevent bronchospasm. How should I use this medicine? This medicine is for inhalation through the mouth. Follow the directions on your prescription label. Take your medicine at regular intervals. Do not use more often than directed. Make sure that you are using your inhaler correctly. Ask you doctor or health care provider if you have any questions. Talk to your [employer] at [employer] regarding the use of this medicine in children. Special care may be needed. What side effects may I notice from receiving this medicine? Side effects that you should report to your doctor or health lawn care technician as soon as possible: allergic reactions like skin rash, itching or hives, swelling of the face, lips, or tongue breathing problems chest pain feeling faint or lightheaded, falls high blood pressure irregular heartbeat fever muscle cramps or weakness pain, tingling, numbness in the hands or feet vomiting Side effects that usually do not require medical attention (report to your doctor or health lawn care technician if they continue or are bothersome): cough difficulty sleeping headache nervousness or trembling stomach upset stuffy or runny nose throat irritation unusual taste What may interact with this medicine? anti-infectives like chloroquine and pentamidine caffeine cisapride diuretics medicines for colds medicines for depression or for emotional or psychotic conditions medicines for weight loss including some herbal products methadone some antibiotics like clarithromycin, erythromycin, levofloxacin, and linezolid some heart medicines steroid hormones like dexamethasone, cortisone, hydrocortisone theophylline thyroid hormones What if I miss a dose? If you miss a dose, use it as soon as you can. If it is almost time for your next dose, use only that dose. Do not use double or extra doses. Where should I keep my medicine? Keep out of the reach of children. Store at room temperature between 15 and 30 degrees C (59 and 86 degrees F). The contents are under pressure and may burst when exposed to heat or flame. Do not freeze. This medicine does not work as well if it is too cold. Throw away any unused medicine after the expiration date. Inhalers need to be thrown away after the labeled number of puffs have been used or by the expiration date; whichever comes first. Ventolin HFA should be thrown away 12 months after removing from foil pouch. Check the instructions that come with your medicine. What should I tell my health care provider before I take this medicine? They need to know if you have any of the following conditions: diabetes heart disease or irregular heartbeat high blood pressure pheochromocytoma seizures thyroid disease an unusual or allergic reaction to albuterol, levalbuterol, sulfites, other medicines, foods, dyes, or preservatives or trying to get breast-feeding What should I watch for while using this medicine? Tell your doctor or health lawn care technician if your symptoms do not improve. Do not use extra albuterol. If your asthma or bronchitis gets worse while you are using this medicine, call your doctor right away. If your mouth gets dry try chewing sugarless gum or sucking hard candy. Drink water as directed. Prednisone Oral tablet What is this medicine? PREDNISONE (PRED ni sone) is a corticosteroid. It is commonly used to treat inflammation of the skin, joints, lungs, and other organs. Common conditions treated include asthma, allergies, and arthritis. It is also used for other conditions, such as blood disorders and diseases of the adrenal glands. How should I use this medicine? Take this medicine by mouth with a glass of water. Follow the directions on the prescription label. Take this medicine with food. If you are taking this medicine once a day, take it in the morning. Do not take more medicine than you are told to take. Do not suddenly stop taking your medicine because you may develop a severe reaction. Your doctor will tell you how much medicine to take. If your doctor wants you to stop the medicine, the dose may be slowly lowered over time to avoid any side effects. Talk to your [employer] at [employer] regarding the use of this medicine in children. Special care may be needed. What side effects may I notice from receiving this medicine? Side effects that you should report to your doctor or health lawn care technician as soon as possible: allergic reactions like skin rash, itching or hives, swelling of the face, lips, or tongue changes in emotions or moods changes in vision depressed mood eye pain fever or chills, cough, sore throat, pain or difficulty passing urine increased thirst swelling of ankles, feet Side effects that usually do not require medical attention (report to your doctor or health lawn care technician if they continue or are bothersome): confusion, excitement, restlessness headache nausea, vomiting skin problems, acne, thin and shiny skin trouble sleeping weight gain What may interact with this medicine? Do not take this medicine with any of the following medications: metyrapone mifepristone This medicine may also interact with the following medications: aminoglutethimide amphotericin B aspirin and aspirin-like medicines barbiturates certain medicines for diabetes, like glipizide or glyburide cholestyramine cholinesterase inhibitors cyclosporine digoxin diuretics ephedrine female hormones, like estrogens and control pills isoniazid ketoconazole NSAIDS, medicines for pain and inflammation, like ibuprofen or naproxen phenytoin rifampin toxoids vaccines warfarin What if I miss a dose? If you miss a dose, take it as soon as you can. If it is almost time for your next dose, talk to your doctor or health lawn care technician. You may need to miss a dose or take an extra dose. Do not take double or extra doses without advice. Where should I keep my medicine? Keep out of the reach of children. Store at room temperature between 15 and 30 degrees C (59 and 86 degrees F). Protect from light. Keep container tightly closed. Throw away any unused medicine after the expiration date. What should I tell my health care provider before I take this medicine? They need to know if you have any of these conditions: Queenie's syndrome diabetes glaucoma heart disease high blood pressure infection (especially a virus infection such as chickenpox, cold sores, or herpes) kidney disease liver disease mental illness myasthenia gravis osteoporosis seizures stomach or intestine problems thyroid disease an unusual or allergic reaction to lactose, prednisone, other medicines, foods, dyes, or preservatives or trying to get breast-feeding What should I watch for while using this medicine? Visit your doctor or health lawn care technician for regular checks on your progress. If you are taking this medicine over a prolonged period, carry an identification card with your name and address, the type and dose of your medicine, and your doctor's name and address. This medicine may increase your risk of getting an infection. Tell your doctor or health lawn care technician if you are around anyone with measles or chickenpox, or if you develop sores or blisters that do not heal properly. If you are going to have surgery, tell your doctor or health lawn care technician that you have taken this medicine within the last twelve months. Ask your doctor or health lawn care technician about your diet. You may need to lower the amount of salt you eat. This medicine may affect blood sugar levels. If you have diabetes, check with your doctor or health lawn care technician before you change your diet or the dose of your diabetic medicine. Azithromycin Oral tablet What is this medicine? AZITHROMYCIN (az ith nilton MYE sin) is a macrolide antibiotic. It is used to treat or prevent certain kinds of bacterial infections. It will not work for colds, flu, or other viral infections. How should I use this medicine? Take this medicine by mouth with a full glass of water. Follow the directions on the prescription label. The tablets can be taken with food or on an empty stomach. If the medicine upsets your stomach, take it with food. Take your medicine at regular intervals. Do not take your medicine more often than directed. Take all of your medicine as directed even if you think your are better. Do not skip doses or stop your medicine early. Talk to your [employer] at [employer] regarding the use of this medicine in children. Special care may be needed. What side effects may I notice from receiving this medicine? Side effects that you should report to your doctor or health lawn care technician as soon as possible: allergic reactions like skin rash, itching or hives, swelling of the face, lips, or tongue confusion, nightmares or hallucinations dark urine difficulty breathing hearing loss irregular heartbeat or chest pain pain or difficulty passing urine redness, blistering, peeling or loosening of the skin, including inside the mouth white patches or sores in the mouth yellowing of the eyes or skin Side effects that usually do not require medical attention (report to your doctor or health lawn care technician if they continue or are bothersome): diarrhea dizziness, drowsiness headache stomach upset or vomiting tooth discoloration vaginal irritation What may interact with this medicine? Do not take this medicine with any of the following medications: lincomycin This medicine may also interact with the following medications: amiodarone antacids cyclosporine digoxin magnesium nelfinavir phenytoin warfarin What if I miss a dose? If you miss a dose, take it as soon as you can. If it is almost time for your next dose, take only that dose. Do not take double or extra doses. Where should I keep my medicine? Keep out of the reach of children. Store at room temperature between 15 and 30 degrees C (59 and 86 degrees F). Throw away any unused medicine after the expiration date. What should I tell my health care provider before I take this medicine? They need to know if you have any of these conditions: kidney disease liver disease irregular heartbeat or heart disease an unusual or allergic reaction to azithromycin, erythromycin, other macrolide antibiotics, foods, dyes, or preservatives or trying to get breast-feeding What should I watch for while using this medicine? Tell your doctor or health lawn care technician if your symptoms do not improve. Do not treat diarrhea with over the counter products. Contact your doctor if you have diarrhea that lasts more than 2 days or if it is severe and watery. This medicine can make you more sensitive to the sun. Keep out of the sun. If you cannot avoid being in the sun, wear protective clothing and use sunscreen. Do not use sun lamps or tanning beds/booths. You have been given the following additional information: Pneumonia (Adult) Fever Control (Adult) Albuterol Sulfate Pressurized inhalation, suspension Prednisone Oral tablet Azithromycin Oral tablet (Electronically signed by Gwen Peña, A.R.N.P. 12/20/2016 18:17)
--- NOTE | 2016-12-20 18:17 | ED MAR SUMMARY ---
..... Medication Administration Record [facility] [address] [place] [address] Patient: DWAINE MORAN Visit ID: [id number] 51y, F Weight: 109.7 kg Height/Length: 63 in BMI: 42.9 ALLERGIES: Codeine Given 13:42 12/20/2016 Rico Price, Medication Administered: ALBUTEROL NEB W ATROVENT, Dose: 1 unit dose Neb TX. Medication Ordered: Albuterol Neb w Atrovent 1 unit dose (NOW). Given 13:49 12/20/2016 Melissa Will RAidaN. Medication Administered: SOLU-MEDROL [IVP] (METHYLPREDNISOLONE SODIUM SUCC), Dose: 125 mg IVP over 3 minute(s), Site: #1 left hand. Medication Ordered: Solu-MEDROL IV 125 mg (NOW). Start 14:35 12/20/2016 Melissa Will, RAidaN., Stop 15:00 12/20/2016 Dilcia Hayes RAidaN. Medication Administered: CEFTRIAXONE [IVPB], Dose: 1 gm IVPB over 20 minute(s), Rate: 150 mL/hr, Dispensed: 50 mL bag, Site: #1 left hand. Medication Ordered: Ceftriaxone IV 1 gm/50mL (NOW).
--- NOTE | 2016-12-20 18:17 | ED MED RECONCILIATION SUMMARY ---
Patient: DWAINE MORAN Medication Reconciliation Report [facility] VisitID: [id number] [address] [place] [address] 51y, F Registration Date/Time: 12/20/2016 Weight: 109.7 kg Height/Length: 63 in. BMI: 42.9 ALLERGIES: Codeine The patient's Home Medications are listed below: THE FOLLOWING MEDICATIONS NEED TO BE RECONCILED: Atorvastatin Calcium Oral 40 mg, daily BuPROPion HCl Oral 150 mg, 2x a day Clotrimazole-Betamethasone External, twice daily Flexeril Oral 10 mg, 2x a day FLUoxetine HCl Oral (60 mg), daily Imitrex Oral (50 mg) 2 tablets, PRN Lantus SoloStar Subcutaneous (100 unit/mL) 60units, twice daily, pt states she hasn't taken for about one month because she wants to loose weight. LORazepam Oral 1 mg, 3x a day Lyrica Oral NovoLOG Subcutaneous PriLOSEC Oral 20 mg, 3x a day Qvar Inhalation (80 mcg/act) 2 puffs, twice daily Triamcinolone Acetonide External Small amount, daily Vicodin Oral 10 mg, 4x a day Vit D-Vit E-Safflower Oil External 1000 units, daily Zetia Oral (10 mg) 1 tablet, daily The source(s) of the original Home Medication information: Not obtained. The following Medications were given to the patient in the Emergency Department: ALBUTEROL NEB W ATROVENT Neb TX 1 unit dose, administered: 12/20/2016 1:42:00 PM SOLU-MEDROL [IVP] IVP 125 mg, administered: 12/20/2016 1:49:00 PM Ceftriaxone [IVPB] IVPB bolus 0, then 1 gm 150 mL/hr, administered: 12/20/2016 2:35:00 PM The following Medications were prescribed to the patient: Albuterol HFA oral inhaler: inhale 1 to 2 puffs every four to six hours as needed for difficulty breathing. Dispense one (1) unit. No refills. -- Gwen Peña, A.R.N.P. Prednisone 20 mg: take 3 orally every day for 5 days. Dispense fifteen (15). No refills. -- Gwen Peña A.R.N.P. Zithromax 250 mg tablets: take 2 orally today, followed by 1 daily for the next 4 days. No refills. Substitution is permissible. -- Gwen Peña A.R.N.P.
--- NOTE | 2016-12-20 18:17 | ED MED RECONCILIATION SUMMARY ---
Patient: DWAINE MORAN Medication Reconciliation Report [facility] VisitID: [id number] [address] [place] [address] 51y, F Registration Date/Time: 12/20/2016 Weight: 109.7 kg Height/Length: 63 in. BMI: 42.9 ALLERGIES: Codeine The patient's Home Medications are listed below: THE FOLLOWING MEDICATIONS NEED TO BE RECONCILED: Atorvastatin Calcium Oral 40 mg, daily BuPROPion HCl Oral 150 mg, 2x a day Clotrimazole-Betamethasone External, twice daily Flexeril Oral 10 mg, 2x a day FLUoxetine HCl Oral (60 mg), daily Imitrex Oral (50 mg) 2 tablets, PRN Lantus SoloStar Subcutaneous (100 unit/mL) 60units, twice daily, pt states she hasn't taken for about one month because she wants to loose weight. LORazepam Oral 1 mg, 3x a day Lyrica Oral NovoLOG Subcutaneous PriLOSEC Oral 20 mg, 3x a day Qvar Inhalation (80 mcg/act) 2 puffs, twice daily Triamcinolone Acetonide External Small amount, daily Vicodin Oral 10 mg, 4x a day Vit D-Vit E-Safflower Oil External 1000 units, daily Zetia Oral (10 mg) 1 tablet, daily The source(s) of the original Home Medication information: Not obtained. The following Medications were given to the patient in the Emergency Department: ALBUTEROL NEB W ATROVENT Neb TX 1 unit dose, administered: 12/20/2016 1:42:00 PM SOLU-MEDROL [IVP] IVP 125 mg, administered: 12/20/2016 1:49:00 PM Ceftriaxone [IVPB] IVPB bolus 0, then 1 gm 150 mL/hr, administered: 12/20/2016 2:35:00 PM The following Medications were prescribed to the patient: Albuterol HFA oral inhaler: inhale 1 to 2 puffs every four to six hours as needed for difficulty breathing. Dispense one (1) unit. No refills. -- Gwen Peña, A.R.N.P. Prednisone 20 mg: take 3 orally every day for 5 days. Dispense fifteen (15). No refills. -- Gwen Peña A.R.N.P. Zithromax 250 mg tablets: take 2 orally today, followed by 1 daily for the next 4 days. No refills. Substitution is permissible. -- Gwen Peña A.R.N.P.
== END 2016-12-20 15:07 | disposition home or self-care (01) ==
LOC: ED SRH 12:34
DX: J18.0 Bronchopneumonia, unspecified organism (principal); J45.909 Unspecified asthma, uncomplicated; I10 Essential (primary) hypertension; E11.9 Type 2 diabetes mellitus without complications; Z79.51 Long term (current) use of inhaled steroids; Z79.4 Long term (current) use of insulin; Z79.899 Other long term (current) drug therapy; Z87.891 Personal history of nicotine dependence; Z88.5 Allergy status to narcotic agent
CPT/HCPCS: 90100; 91320; 95059